=== PATIENT | female | born 1975 | race African-American/Black ===

== ENCOUNTER → 2023-10-25 12:44 | Outpatient (BNVA) | payer SELFPAY | PROVIDERS: Visit Provider Physician Assistant Medical ==

== ENCOUNTER 2023-12-23 15:57 | Emergency (ER) | payer MEDICAID, SELFPAY ==
--- NOTE | ~2023-12-23 | CT_ITS ---
EXAMINATION: CT HEAD WITHOUT CONTRAST CLINICAL INFORMATION: Headache. Dizziness. Right upper extremity weakness/numbness for 3 days. COMPARISON: None available. TECHNIQUE: Contiguous axial imaging was performed from the skull base to vertex without intravenous administration of contrast. This CT examination was performed using dose optimization techniques as appropriate, variously including the following: *Automated exposure control. *Adjustment of mA and/or kV according to patient size (this includes techniques or standardized protocols for targeted exams where dose is matched to indication/reason for exam; i.e. extremities or head). *Use of iterative reconstruction technique. DLP: 666 mGy-cm FINDINGS: There is no evidence of acute intracranial hemorrhage or edematous territorial infarction. Stern-white matter differentiation is preserved. There is no abnormal attenuation within the brain parenchyma. The ventricles are normal in morphology and size. No evidence for obstructive hydrocephalus. No abnormal mass effect or midline shift. No extra-axial fluid collections. No acute soft tissue or osseous abnormalities. Mild mucosal thickening of the paranasal sinuses. The mastoid air cells and middle ear cavities are clear. 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 CT/CT head/brain wo IV con IMPRESSION: No evidence of acute intracranial hemorrhage or edematous territorial infarction. Electronically signed by: Sathish Biswas DO 12/23/2023 05:53 PM EDT
--- NOTE | ~2023-12-23 | XR_ITS ---
EXAMINATION: XR CHEST CLINICAL INFORMATION: Chest pain. COMPARISON: None available. TECHNIQUE: 2 views of the chest were obtained. FINDINGS: The heart is normal in size. The lungs are clear. No pleural effusion or pneumothorax. No acute osseous abnormality. XR/XR chest 2V IMPRESSION: No acute cardiopulmonary disease. Electronically signed by: Javan Rosenbaum DO 12/23/2023 05:29 PM EDT RP
--- NOTE | 2023-12-23 16:00 | ECG_ITS ---
Test Reason : CHEST PAIN Blood Pressure : / mmHG Vent. Rate : 081 BPM Atrial Rate : 081 BPM P-R Int : 126 ms QRS Dur : 080 ms QT Int : 390 ms P-R-T Axes : 034 -22 012 degrees QTc Int : 453 ms Normal sinus rhythm Moderate voltage criteria for LVH, may be normal variant ( R in aVL , Dwight product ) Borderline ECG No previous ECGs available Referred By: Generic ED Physician Electronically Signed By:YESENIA BENSON
[2023-12-23 16:04] VITALS: BP 130/80; BP 173/87; PULSE 81; PULSE 87; RESP 22; TEMP 37.1; O2SAT 96; O2SAT 98; BMI 45.4
[2023-12-23] MEDS: Nitroglycerin 2 % Oint 1 GM Packet 1 INCH TRANSDERMA (16:50)
--- NOTE | 2023-12-23 16:55 | PC.NURSE ---
pt retuned from CT at this time. nitropaste applied to pt's right side of chest. rating pain a /10. effectiveness pending. 20gIV placed in the left AC - labs obtained/sent to lab. respirations remain even/unlabored. plan of care ongoing. call grullon placed within reach.
[2023-12-23 17:01] LABS: MANUAL DIFF FLAG NO
[2023-12-23 17:05] LABS: Basophils Percent Auto 0.5 % (0-2); Eosinophils Absolute Auto 0.3 X10*3/uL (0.0-0.4); Eosinophils Percent Auto 3.1 % (0-4); Hematocrit 30.6 % (37.0-47.0); Hemoglobin 9.8 g/dl (12.0-16.0); Imm Gran Abs Auto 0.02 X10*3/uL (0.00-0.03); Imm Gran Pct Auto 0.2 % (0.0-0.4); Lymphocytes Absolute Auto 3.6 X10*3/uL (1.2-4.9); Lymphocytes Percent Auto 42.7 % (20-40); Mean Corpuscular Hemoglobin 25.3 pg (27.0-33.0); Mean Corpuscular Volume 79.1 fL (80.0-98.0); Mean Platelet Volume 8.7 fL (9.4-12.3); Monocytes Absolute Auto 0.8 X10*3/uL (0.1-1.2); Monocytes Percent Auto 9.6 % (2-11); Neutrophils Absolute Auto 3.7 x10*3/uL (2.0-8.3); Neutrophils Percent Auto 43.9 % (45-73); Platelet Count 292 X10*3/uL (160-400); Red Blood Count 3.87 X10*6/uL (4.20-5.50); Red Cell Distribution Width 18.3 % (11.0-16.0); White Blood Count 8.5 X10*3/uL (4.8-10.8)
[2023-12-23 17:13] LABS: INTERNATIONAL NORM RATIO 0.9 (0.9-1.1); Prothrombin Time 10.8 SEC (10.9-12.4)
[2023-12-23 17:15] LABS: Magnesium 1.5 mg/dL (1.6-2.6)
[2023-12-23 17:22] LABS: Troponin-I High Sensitivity 3.2 ng/L (<3.5-17.0)
[2023-12-23 17:23] LABS: Alanine Aminotransferase 16 U/L (0-31); Albumin Level 3.5 g/dL (3.5-5.0); Alkaline Phosphatase 77 U/L (39-117); Anion Gap 11 (12-20); Aspartate Amino Transferase 18 U/L (5-31); B Type Natriuretic Peptide < 10 pg/mL (<100); Bilirubin Total 0.2 mg/dL (0.0-1.0); Blood Urea Nitrogen 11 mg/dL (9-16); Carbon Dioxide 24 mmol/L (22-29); Chloride 110 mmol/L (96-108); Creatinine Clr Calc Pharmacy 87.2; Estimated Glomerular Filt Rate 53; Glucose Random 92 mg/dL (60-115); Sodium 141 mmol/L (135-145); Total Protein 6.9 g/dL (6.5-8.0)
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
[2023-12-23 18:37] VITALS: BP 157/97; PULSE 83; RESP 16; TEMP 36.9; O2SAT 98
[2023-12-23] MEDS: Ketorolac Tromethamine 15 MG/ML VIAL IVPUSH (18:38)
[2023-12-23 19:49] LABS: Troponin-I High Sensitivity 2.9 ng/L (<3.5-17.0)
[2023-12-23 20:46] VITALS: PULSE 89; RESP 18; O2SAT 96
[2023-12-24 01:08] VITALS: BP 0/0; PULSE 89; RESP 18; TEMP -17.7; TEMP 0; O2SAT 96
== END 2023-12-23 20:40 | disposition home or self-care (01) ==
PROVIDERS: Nurse Practitioner Family; Emergency Provider Internal Medicine
DX: R07.9 Chest pain, unspecified (principal)
CPT/HCPCS: 36415; 70450; 71046; 80053; 83735; 83880; 84484; 85025; 85610; 93005; 96374; 99284; 99285; J1885